=== PATIENT | female | born 1995 | race Caucasian/White ===

== ENCOUNTER 2021-02-05 15:18 | Emergency (ER) | payer OTHER ==
[~2021-02-05] VITALS: Ht 167.6 cm; Wt 94.6 kg
[2021-02-05 15:21] VITALS: BP 116/74
[2021-02-05] MEDS ORDERED: IBUPROFEN 600 MG TABLET ONE (15:36)
[2021-02-05] MEDS ORDERED: IBUPROFEN 600 MG TABLET PO ONE (16:00)
== END 2021-02-05 16:38 | disposition home or self-care (01) ==
LOC: ED 16:32
DX: S93.491A Sprain of other ligament of right ankle, initial encounter (principal); X58.XXXA Exposure to other specified factors, initial encounter; Y93.89 Activity, other specified; Y92.410 Unspecified street and highway as the place of occurrence of the external cause; Y99.8 Other external cause status
CPT/HCPCS: 99284